=== PATIENT | male | born 1965 | race Caucasian/White ===

== ENCOUNTER → 2021-09-20 | Outpatient (CLI) | payer OTHER ==
[2021-09-20 15:08] LABS: HCT 49.2 % (39.0-53.0); MCH 33.7 pg (25.0-35.0); MCHC 32.5 g/dL (31.0-37.0); MCV 103.5 fL (80.0-100.0); Macrocytosis Slight; Mean Platelet Volume 7.5; Platelet Count 288 k/uL (150-450); RBC 4.75 m/uL (4.30-5.90); RDW 13.1 % (11.5-15.5); WBC 6.4 k/uL (3.8-10.6)
[2021-09-20 15:09] LABS: Appearance,Urine Clear (Clear); Bilirubin,Urine Negative (Negative); Blood,Urine Negative (Negative); Color,Urine Light Yellow; Glucose,Urine (UA) Negative (Negative); Ketones,Urine Negative (Negative); Leukocyte Esterase,Urine Negative (Negative); Nitrite,Urine Negative (Negative); PH, Urine 5.5 (5.0-8.0); Protein,Urine Negative (Negative); Specific Gravity,Urine 1.005 (1.001-1.035); Urobilinogen,Urine <2.0 mg/dL (<2.0)
[2021-09-20 15:15] LABS: ALT 21 U/L (4-49); AST 34 U/L (17-59); African American GFR (CKD) >90 (>60 ml/min/1.73 sqM); Albumin 4.4 g/dL (3.5-5.0); Alkaline Phosphatase 73 U/L (38-126); Anion Gap 6 mmol/L; Blood Urea Nitrogen 10 mg/dL (9-20); Calcium 9.5 mg/dL (8.4-10.2); Carbon Dioxide 26 mmol/L (22-30); Chloride 98 mmol/L (98-107); Glucose 82 mg/dL (74-99); Non-African American GFR(CKD) >90 (>60 ml/min/1.73 sqM); Potassium 4.7 mmol/L (3.5-5.1); Sodium 130 mmol/L (137-145); Total Bilirubin 0.6 mg/dL (0.2-1.3); Total Protein 7.8 g/dL (6.3-8.2)
[2021-09-20 15:24] LABS: INR 0.9 (<1.2); Partial Thromboplastin Time 24.4 sec (22.0-30.0); Prothrombin Time 9.8 sec (9.0-12.0)
== END | disposition home or self-care (01) ==
LOC: LABPAT 14:10
PROVIDERS: ATTEND Orthopaedic Surgery
DX: Z01.812 Encounter for preprocedural laboratory examination (principal); M16.11 Unilateral primary osteoarthritis, right hip
CPT/HCPCS: 80053; 81003; 85027; 85610; 85730; 87070; 93005

== ENCOUNTER 2021-10-01 10:09 | Day surgery (SDC) | payer OTHER ==
[2021-09-24 13:04] VITALS: BMI 25.5
[~2021-10-01 10:09] MED LIST: ACETAMINOPHEN TAB 500 MG TAB PO PRN; GABAPENTIN 300 MG CAP PO PRN; MELOXICAM 7.5 MG TAB PO PRN; TRANEXAMIC ACID 1,000 MG in SODIUM CHLORIDE 0.9% 100 ML IVPB PRN
[2021-10-01] MEDS ORDERED: ONDANSETRON 4 MG/2 ML VIAL ONE (10:47)
[2021-10-01] MEDS ORDERED: LIDOCAINE 1% (10MG/ML) FOR IV START INTRADERMA ONE (10:50)
[2021-10-01] MEDS ORDERED: LACTATED RINGERS 1,000 ML IV ONE ×2 (10:51→12:24)
[2021-10-01] MEDS ORDERED: ONDANSETRON 4 MG/2 ML VIAL IVP ONE (10:53)
[2021-10-01] MEDS ORDERED: DEXAMETHASONE SOD PHOSPHATE 4 MG/ML 1 ML VIAL IVP ONE (10:53)
[2021-10-01] MEDS ORDERED: ROCURONIUM 10 MG/ML (5 ML VIAL) IV ONE (11:09)
[2021-10-01] MEDS ORDERED: HYDROmorphone (PF) 1 MG/ML ONE (11:09)
[2021-10-01] MEDS ORDERED: MIDAZOLAM 2 MG/2 ML VIAL ONE (11:09)
[2021-10-01] MEDS ORDERED: SODIUM CHLORIDE 0.9% IRRIG 1,000 ML BTL IRRIGATION ONE (11:09)
[2021-10-01] MEDS ORDERED: PHENYLEPHRINE-0.9% NACL SYG 1,000 MCG/10 ML SYRINGE ONE (11:09)
[2021-10-01] MEDS ORDERED: LIDOCAINE 1% INJ 10MG/ML (20 ML MDV) ONE (11:09)
[2021-10-01] MEDS ORDERED: HEPARIN SODIUM,PORCINE 10,000 UNIT/ML 1 ML VIAL ONE (11:09)
[2021-10-01] MEDS ORDERED: PROPOFOL 10 MG/ML 20 ML VIAL IV ONE (11:09)
[2021-10-01] MEDS ORDERED: TRANEXAMIC ACID 1,000 MG/10 ML VIAL ONE (11:09)
[2021-10-01] MEDS ORDERED: GLYCOPYRROLATE 0.2 MG/ML 2 ML VIAL ONE (11:09)
[2021-10-01] MEDS ORDERED: SUCCINYLCHOLINE CHLORIDE 100 MG/5 ML SYR IV ONE (11:09)
[2021-10-01] MEDS ORDERED: CALCIUM CHLORIDE 100 MG/ML 10 ML SYRINGE ONE (11:09)
[2021-10-01] MEDS ORDERED: SODIUM CHLORIDE 0.9% 100 ML BAG ONE (11:09)
[2021-10-01] MEDS ORDERED: NEOSTIGMINE 1 MG/ML 10 ML VIAL ONE (11:09)
[2021-10-01] MEDS ORDERED: fentaNYL (PF) 50 MCG/ML 2 ML AMP ONE (11:09)
[2021-10-01] MEDS ORDERED: MIDAZOLAM 2 MG/2 ML VIAL IVP ONE (11:12)
[2021-10-01] MEDS ORDERED: ceFAZolin 1,000 MG in SODIUM CHLORIDE 0.9% 1,000 ML IRRIGATION ONE (11:14)
[2021-10-01] MEDS: ROPIVACAINE/EPI/CLONIDINE/KET 50 ML SYRINGE MISCELLANE PRN ×2 (11:42→12:17)
--- NOTE | 2021-10-01 12:31 | P.OP ---
Date of Procedure: 10/01/21 Preoperative Diagnosis: Severe osteoarthritis secondary to avascular necrosis of the right hip Postoperative Diagnosis: Severe osteoarthritis secondary to avascular necrosis of the right hip Procedure(s) Performed: Right total hip arthroplasty with a direct anterior approach Implants: An & Nephew Polarstem standard size 4 An & Nephew R3, 3 hole hemispherical acetabular shell, 52 mm An & Nephew Reflection 6.5 mm cancellus screw, 20 mm 2 Na & Nephew R3, XLPE 20 acetabular liner An & Nephew Oxinium femoral head 36 m, +0 All components were press-fit. The articulation is Oxinium on polyethylene. Anesthesia: GETA Surgeon: Blayne Figueroa Director Of Social Services #1: Jana Wallace Estimated Blood Loss (ml): 100 Pathology: other (Femoral head) Condition: stable Disposition: PACU Indications for Procedure: After failure of conservative treatment we discussed the surgical and nonsurgical treatment options at length. Patient wishes to proceed with a total hip arthroplasty with a direct anterior approach. Complications specific to this procedure were discussed at length, including but not limited to infection, leg length discrepancy, dislocation, nerve injury, and fracture. Covid-19 was also discussed at length with the patient, and they are aware of the current policies and procedures. The patient was given the option of delaying surgery, but they elect to proceed knowing these risks. Patient is aware of all these complications and informed consent was obtained Operative Findings: The operative findings are consistent with severe osteoarthritis of the right hip Description of Procedure: Patient was seen and evaluated in the preoperative area and the consent was reviewed. The operative site was marked with a skin marker. The patient was then brought to the operating room and given preoperative antibiotics intravenously. 1 g of Tranexamic acid was also given intravenously. A general anesthetic was administered by the anesthesia department. The patient was then placed on the [place] table with the bony prominences well-padded. The hip area was then prepped with a ChloraPrep solution and draped in the usual sterile fashion. A universal timeout was then performed, which confirmed the patient's name, surgical site, ALLERGIES, and procedure being performed on the consent. Next the incision site was located at 1 cm distal and 2 cm lateral to the anterior superior iliac spine. The skin and subcutaneous tissues were sharply incised. Incision was carefully dissected down to the fascia overlying the tensor fascia denver muscle. This fascia was then incised in line with the incision. Care was taken to stay laterally in order to avoid injuring the lateral femoral cutaneous nerve. Next, using blunt finger dissection, the tensor fascia denver muscle was dissected off its investing fascia. The muscle was then carefully retracted laterally with a cobra retractor over the lateral neck of the femur. Next, the circumflex vessels were identified and cauterized using the AquaMantis device. The anterior hip capsule was then exposed. The capsule was then opened and an inverted T fashion. Cobra retractors were then placed intracapsularly. The retractors were maintained intracapsular throughout the procedure. The proximal femur was then visualized. Fluoroscopic x-rays were then taken in order to evaluate the preoperative leg lengths. A small amount of traction was placed on the leg. The femoral neck was then osteotomized appropriate level above the lesser trochanter. A small wedge of bone was then removed from the remaining femoral head. Next, using a corkscrew the femoral head was removed from the acetabulum. On gross visual inspection, the femoral head had complete loss of articular cartilage and multiple periarticular osteophytes. The femoral head was then measured. Attention was then turned to the acetabulum. The acetabulum was exposed and any remaining labrum was excised. Sequential re aming of the acetabulum was performed using fluoroscopic guidance until there was a good bed of bleeding cancellus bone. When the appropriate size was reached, a trial was then placed. The position and fit of the trial was checked with fluoroscopy. The trial was then removed. Then, using fluoroscopic guidance, the final implant was impacted at 20 of anteversion and 40 of abduction, and fully seated in the acetabulum. 2 screws were then placed in the acetabulum. Again fluoroscopy was used to check position of the screws. Next, the liner was then impacted, with a 20 elevated liner located in the anterior superior quadrant. Component locking was confirmed. Attention was then directed to the femur. With the aid of the [place] table, the femur was externally rotated to approximately 130, extended, and adducted under the opposite leg. A side hook was then placed under the proximal femur, and the side hook elevator was used to elevate the proximal femur while releasing the capsule. Retractors were then placed. A capsular release was performed, as well as a release of the conjoined tendon, which afforded excellent visualization of the proximal femur. Next, a box osteotome was used to lateralize the proximal femur. A hand coper was then used to locate the femoral canal. Sequential broaching was then performed with appropriate size which afforded excellent fixation in the proximal femur. A trial was then placed with appropriate head and neck, and the hip was gently reduced with the aid of the [place] table. Fluoroscopy was then used to check position of the components, as well as to ensure equal leg lengths. The hip was then gently dislocated and the trials were then removed. Final implants were then impacted and the hip was again reduced. Final fluoroscopic x-rays confirmed that the components were in anatomic position, as well as equal leg lengths. The hip was also taken through range of motion, and found to be stable. The hip was then copiously irrigated with antibiotic solution with pulsatile lavage. The hip was then irrigated with Irrisept solution. The soft tissues were then injected with a ropivacaine solution, which consisted of 246.25 mg of ropivacaine, 0.5 mg of epinephrine, 30 mg of Toradol, 80 g of clonidine, and 48.45 mL of sterile water, for a total of 100 mL of fluid injected. A second dose of 1 g of Tranexamic acid was also given intravenously. Any blood collected by [employer] was then returned to the patient at this time. The fascia was then closed with 2-0 strata fix suture. The subcutaneous tissue was closed with 3-0 Vicryl. The subcuticular tissue was closed with 3-0 strata fix suture. The skin was then closed with Exofin skin glue. After the glue and dried, and Optifoam silver impregnated dressing was applied. The patient was then transferred to the recovery room in stable condition. The pastrycook's assistant SAMREEN Owusu was required due to the complexity of surgery, and the need for skilled surgical aide for positioning, draping, exposure, retraction, and closure of the wound.
[2021-10-01 12:52] VITALS: TEMP 96.8
[2021-10-01] MEDS: HYDROmorphone 0.5 MG/0.5 ML SYRINGE IVP ONE ×2 (12:55→13:13)
[2021-10-01 13:00] VITALS: RESP 16
[2021-10-01] MEDS ORDERED: HYDROmorphone 0.5 MG/0.5 ML SYRINGE IVP PRN (13:02)
[2021-10-01] MEDS ORDERED: NALOXONE 0.4 MG/ML 1 ML VIAL IV PRN (13:02)
[2021-10-01] MEDS ORDERED: HYDROmorphone 0.2 MG/1 ML SYRINGE IVP PRN (13:02)
[2021-10-01] MEDS ORDERED: HYDROmorphone 1 MG/ML 1 ML SYRINGE IVP PRN (13:02)
[2021-10-01] MEDS ORDERED: ONDANSETRON 4 MG/2 ML VIAL IVP PRN (13:02)
[2021-10-01] MEDS ORDERED: HYDROcodone/APAP 7.5-325MG 1 EACH TAB PO PRN ×2 (13:03)
[2021-10-01] MEDS ORDERED: SODIUM CHLORIDE 0.9% 1,000 ML IV SCH (13:15)
--- NOTE | 2021-10-01 13:20 | XR ---
EXAMINATION TYPE: XR Hip Limited RT DATE OF EXAM: 10/01/2021 CLINICAL HISTORY: Right hip pain and osteoarthritis. TECHNIQUE: Single AP portable view of right hip is obtained immediately postoperatively. COMPARISON: None. FINDINGS: Metallic hardware from right hip arthroplasty is seen and appears satisfactory in alignment and position. There is evidence of recent surgery with subcutaneous gas noted extending laterally. IMPRESSION: Metallic hardware from right hip arthroplasty is satisfactory in position.
[2021-10-01 14:35] VITALS: BP 151/83; PULSE 84
[2021-10-01] MEDS ORDERED: HYDROcodone/APAP 7.5-325MG 1 EACH TAB PO ONE (14:41)
[2021-10-01] MEDS ORDERED: IV FLUID CONTINUATION 1,000 ML IV ONE (15:00)
--- NOTE | 2021-10-01 16:23 | FL ---
Fluoroscopy INDICATION: Pain FINDINGS: Fluoroscopy time: 22 seconds. Images obtained: 0. IMPRESSIONS: 1. Documentation of fluoroscopy.
--- NOTE | 2021-10-01 17:18 | XR ---
Fluoroscopy INDICATION: Pain FINDINGS: Fluoroscopy time: 22 seconds. Images obtained: 7. IMPRESSIONS: 1. Documentation of fluoroscopy.
== END 2021-10-01 16:08 | disposition home health service (06) ==
LOC: OR 10:09
PROVIDERS: ATTEND Orthopaedic Surgery
DX: M16.11 Unilateral primary osteoarthritis, right hip (principal); M87.88 Other osteonecrosis, other site; I10 Essential (primary) hypertension; E78.5 Hyperlipidemia, unspecified; F32.A Depression, unspecified; H91.90 Unspecified hearing loss, unspecified ear; Z97.3 Presence of spectacles and contact lenses; Z98.890 Other specified postprocedural states; F17.210 Nicotine dependence, cigarettes, uncomplicated; M10.9 Gout, unspecified; F41.1 Generalized anxiety disorder; F99 Mental disorder, not otherwise specified; Z83.3 Family history of diabetes mellitus; Z82.49 Family history of ischemic heart disease and other diseases of the circulatory system; Z79.899 Other long term (current) drug therapy
CPT/HCPCS: 97162; 86891; 86900; 86901; 86850; 73501; 27130; C1776; J2250; J1644; J1100; J2710; J0690 ×2; J2405; J2001; J3010; J1170 ×2; J2370; J0330; J2704; 88305; 88311

== ENCOUNTER → 2024-10-11 | Outpatient (CLI) | payer OTHER ==
--- NOTE | 2024-10-12 07:27 | CA ---
Exercise Stress Test Report Name: Calin Coffman Exam Date: 10/11/2024 08:52 Exam Location: [place] Stress Ht (in): 68 Wt (lb): 150 BSA: 1.81 Ordering Phys: Teofilo Dorsey DO Referring Phys: Tabatha Maurer [facility] Technologist: Senthil Alcantar Age: 59 Gender: M : 1965 Procedure CPT: Indications: I45.9 CONDUCTION DISORDER Z12.2 LUNG CA SC F17.210 ICD-10 Codes: Patient History: Medications: Meds past 24 hrs: Pretest Chest Pain: STRESS TEST Benji Protocol Exercise Duration (min:sec): 06:[address] Depressions (mm): Angina Score: Vargas Score: Resting HR (bpm): 95 Peak HR (bpm): 128 Resting BP (mmHg): 152 / 95 Peak BP (mmHg): 199 / 113 MPHR: 159 Target HR: 135 % MPHR: 81 METS: 6.6 Total Dose: Peak Dose: Atropine: Double Product: 66106 BP Response: Stress Termination: Dyspnea Stress Symptoms: Dyspnea, LEG WEAKNESS Stress Summary: ECG ANALYSIS Resting ECG: Stress ECG: CONCLUSIONS Baseline EKG revealed normal sinus rhythm without significant ST-T changes. Patient walked on a standard Benji protocol for a total duration of 6 minutes and achieved a maximum heart rate of 128 bpm which is 81% of predicted maximal. He developed discomfort in the leg and hip and therefore stress test.. He did not have any angina. He didn't have shortness of breath. There was no significant arrhythmia. There were no ST segment changes to indicate ischemia. This is considered is a inconclusive stress test because of inadequate chronotropic response and his exercise capacity was a limited. Myocardial ischemia cannot be excluded and he will benefit from a pharmacological stress testing Dr. Bella Elder MD (Electronically Signed) Final Date: 12 October 2024 07:27
--- NOTE | 2024-10-12 16:34 | CTL ---
EXAMINATION TYPE: CT Low Dose Lung DATE OF EXAM: 10/11/2024 7:21 AM COMPARISON: None. CLINICAL INDICATION: Male, 59 years old with history of I45.9 CONDUCTION DISORDER Z12.2 LUNG CA SC F1 7.210, lung CA screening, Lung cancer screening, History of tobacco use. TECHNIQUE: Low dose computed tomography scan was performed through the chest at 1 mm thick sections a nd reconstructed images in the coronal plane at 1 mm thick sections. Contrast used: mL of , (none if empty) Oral contrast used: (none if empty) CT DLP: 81.7 mGycm, Automated exposure control for dose reduction was used. CT CTDI: 2.0 mGy, Automated exposure control for dose reduction was used. SCREENING VISIT: CT DIAGNOSTIC QUALITY: Satisfactory FINDINGS: LUNG NODULES: None. There is calcified granuloma posterior medial left apex and calcified granulomas along the lateral le ft lung sulcus. LUNGS: COPD: Severity: r Fibrosis: Severity: None Lymph nodes: None Other findings: None RIGHT PLEURAL SPACE: Effusion: None Calcification: None Thickening: None Pneumothorax: None LEFT PLEURAL SPACE: Effusion: None Calcification: None Thickening: None Pneumothorax: None HEART: Other: Ascending thoracic aorta at the level the main pulmonary artery measures 3.7 cm. The main pul monary artery at the bifurcation measures3.0 cm. Heart Size: Normal Coronary calcification: Mild Pericardial effusion: None OTHER FINDINGS: Upper abdomen: Normal Bony thorax: Normal Supraclavicular region: Normal IMPRESSION: No suspicious changes for primary or metastatic neoplasm FOLLOW UP CT CHEST RECOMMENDATION: Follow-up low-dose CT chest one year CT LUNG RAD: Lung-Rad 2 Benign Appearance or Behavior [facility], , 10/12/2024 4:32 PM
== END | disposition home or self-care (01) ==
LOC: RADCTMAIN 06:53
PROVIDERS: ATTEND Internal Medicine
DX: Z12.2 Encounter for screening for malignant neoplasm of respiratory organs (principal); I45.9 Conduction disorder, unspecified; F17.210 Nicotine dependence, cigarettes, uncomplicated
CPT/HCPCS: 71271; 93017

== ENCOUNTER → 2024-11-30 | Outpatient (CLI) | payer OTHER ==
[~2024-11-30] MED LIST changes: -ACETAMINOPHEN TAB 500 MG TAB PO PRN; -GABAPENTIN 300 MG CAP PO PRN; -MELOXICAM 7.5 MG TAB PO PRN; +REGADENOSON 0.4 MG/5 ML SYRINGE IV PRN; -TRANEXAMIC ACID 1,000 MG in SODIUM CHLORIDE 0.9% 100 ML IVPB PRN
--- NOTE | 2024-11-30 11:59 | NM ---
EXAMINATION TYPE: NM stress lexiscan cardiolite DATE OF EXAM: 11/30/2024 COMPARISON: NONE CLINICAL INDICATION: Male, 59 years old with chest pain, history of I45.9 CONDUCTION DISORDER, UNSPEC IFIED; TECHNIQUE: After the intravenous administration of 10.5 mCi Tc 99m Sestamibi - Cardiolite resting SP ECT images acquired 60 minutes post injection. The patient received 0.4mg Lexiscan, 25.4 mCi Tc 99m Sestamibi - Stress images obtained [address] injection FINDINGS: Review of stress and rest SPECT images demonstrates a fixed defect along the mid to apical inferior w all no distinct perfusion abnormality. Gated analysis shows normal wall motion with an estimated lef t ventricular ejection fraction of 68 %. TID is calculated at 1.0, within normal limits. IMPRESSION: 1. Fixed defect mid to apical inferior wall suspected diaphragmatic attenuation artifact rather than old infarct. Clinically correlate. 2. No scintigraphic evidence for reversible ischemia. [facility], , 11/30/2024 11:56 AM
--- NOTE | 2024-11-30 12:15 | CA ---
Lexiscan Nuclear Stress Test Report Name: Calin Coffman Exam Date: 11/30/2024 09:48 Exam Location: [place] Stress Ht (in): 68 Wt (lb): 150 BSA: 1.81 Ordering Phys: Teofilo Dorsey DO Referring Phys: Tabahta Maurer [facility] Technologist: SARY Age: 59 Gender: M : 1965 Procedure CPT: Indications: I45.9 CONDUCTION DISORDER, UNSPECIFIED ICD-10 Codes: Patient History: JOSE, fam hx, current smoker, HTN. Medications: Acamprosate, Escitalopram, Amlodipine Meds past 24 hrs: Pretest Chest Pain: STRESS TEST Lexiscan Protocol Exercise Duration (min:sec): 02:[address] Depressions (mm): Angina Score: Vargas Score: Resting HR (bpm): 68 Peak HR (bpm): 89 Resting BP (mmHg): 147 / 82 Peak BP (mmHg): 156 / 85 MPHR: 159 Target HR: 135 % MPHR: 56 METS: 1.0 Total Dose: Peak Dose: Atropine: Double Product: 10170 BP Response: Stress Termination: INFUSION COMPLETE Stress Symptoms: NO SYMPTOMS Stress Summary: ECG ANALYSIS Resting ECG: Stress ECG: CONCLUSIONS Baseline EKG reveals a normal sinus rhythm without significant ST-T changes. With Lexiscan administration heart rate changed from 64 to 82 bpm and the blood pressure changed from 147/82 to 156/85. Patient was asymptomatic EKG was unremarkable. This is unremarkable Lexiscan stress test. The nuclear scan results will be reported by the radiologist. Dr. Bella Elder MD (Electronically Signed) Final Date: 30 November 2024 12:14
== END | disposition home or self-care (01) ==
LOC: RADNMMAIN 07:56
PROVIDERS: ATTEND Internal Medicine
DX: I45.9 Conduction disorder, unspecified (principal); F17.210 Nicotine dependence, cigarettes, uncomplicated; I10 Essential (primary) hypertension; Z82.49 Family history of ischemic heart disease and other diseases of the circulatory system
CPT/HCPCS: 93017; 78452; A9500; J2785

== ENCOUNTER → 2025-01-14 | Outpatient (CLI) | payer OTHER ==
[2025-01-14 12:48] LABS: Basophils # (A) 0.05 X 10*3/uL (0.00-0.10); Eosinophils # (A) 0.22 X 10*3/uL (0.04-0.35); Eosinophils % (A) 4.2 %; HCT 45.3 % (39.6-50.0); HGB 15.6 g/dL (13.0-17.0); Lymphocytes # (A) 2.39 X 10*3/uL (0.90-5.00); Lymphocytes % (A) 46.1 %; MCH 35.7 pg (27.0-32.0); MCHC 34.4 g/dL (32.0-37.0); MCV 103.7 FL (80.0-97.0); Mean Platelet Volume 9.9 FL (9.5-12.2); Monocytes # (A) 0.41 X 10*3/uL (0.20-1.00); Monocytes % (A) 7.9 %; NRBC Per 100 WBC 0 X 10*3/uL (0.00-0.01); Neutrophils # (A) 2.09 X 10*3/uL (1.80-7.70); Neutrophils % (A) 40.4 %; Platelet Count 290 X 10*3/uL (140-440); RBC 4.37 X 10*6/uL (4.40-5.60); RDW 13.3 % (11.5-14.5); WBC 5.18 X 10*3/uL (4.50-10.00)
[2025-01-14 14:32] LABS: BUN/Creat Ratio 7.75 Ratio (12.00-20.00); Blood Urea Nitrogen 6.2 mg/dL (9.0-27.0); Chloride 99 mmol/L (96-109); Chol/HDL Ratio 1.94 Ratio; Glucose 88 mg/dL (70-110); LDL Cholesterol,Calculated 89.6 mg/dL (0.0-131.0); Potassium 5.3 mmol/L (3.5-5.5); Sodium 134 mmol/L (135-145)
[2025-01-14 14:33] LABS: ALT 36 U/L (10-49); AST 39 U/L (14-35); Albumin 4.3 g/dL (3.8-4.9); Alkaline Phosphatase 79 U/L (41-126); Calcium 9.4 mg/dL (8.7-10.3); Carbon Dioxide 26.5 mmol/L (21.6-31.8); Globulin 3.3 g/dL (1.6-3.3); Total Bilirubin 0.6 mg/dL (0.3-1.2); Total Protein 7.6 g/dL (6.2-8.2)
== END | disposition home or self-care (01) ==
LOC: LABWHC1 08:50
PROVIDERS: ATTEND Internal Medicine
DX: Z00.00 Encounter for general adult medical examination without abnormal findings (principal); I10 Essential (primary) hypertension; E78.2 Mixed hyperlipidemia; R53.82 Chronic fatigue, unspecified
CPT/HCPCS: 36415; 80053; 80061; 84443; 85025; 86803